=== PATIENT | female | born 1985 | race Caucasian/White ===

== ENCOUNTER 2020-11-23 17:39 | Emergency (ER) | payer OTHER ==
[~2020-11-23] VITALS: Ht 152.4 cm; Wt 74.8 kg
[~2020-11-23 17:39] MED LIST: IBUPROFEN 600600 M1 PO; IRON325 PO; METHOCARBAMOL500 M2 PO; NAPROSYN500 MG PO; NORCO 5-325 TA1 EACH PO; SENNA PO
[2020-11-23 19:44] LABS: URINE BILIRUBIN NEGATIVE (Negative); URINE BLOOD TRACE (Negative); URINE CLARITY CLEAR; URINE COLOR YELLOW; URINE GLUCOSE-RANDOM* NEGATIVE (Negative); URINE KETONES NEGATIVE (Negative); URINE NITRITE-REFLEX NEGATIVE (Negative); URINE PROTEIN (DIPSTICK) NEGATIVE (Negative); URINE UROBILINOGEN 0.2 E.U./dl (0.2-1.0)
[2020-11-23 19:45] LABS: URINE LEUKOCYTES-REFLEX 1+ (Negative)
[2020-11-23 20:05] LABS: SQUAMOUS 4-10 Moderate /LPF (0-3)
[2020-11-23 20:06] LABS: BACTERIA-REFLEX 1-9 Few /HPF (None Seen); MUCUS 0-3 Light strn/LPF (None Seen); URINE RBC 1-2 Rare /HPF (NONE SEEN); URINE WBC-REFLEX 0-5 Rare /HPF (0-5)
[2020-11-23 20:35] LABS: CALCIUM 9.2 mg/dL (8.5-10.1); CREATININE 0.7 mg/dL (0.6-1.0); POTASSIUM 4.5 mmol/L (3.5-5.1)
[2020-11-23] MEDS ORDERED: FLEXERIL PO (20:49)
[2020-11-24 07:47] VITALS: BP 147/75
== END 2020-11-23 21:40 | disposition home or self-care (01) ==
LOC: ER 17:39
PROVIDERS: Physician Assistant
DX: S61.012A Laceration without foreign body of left thumb without damage to nail, initial encounter (principal); S63.682A Other sprain of left thumb, initial encounter; S30.1XXA Contusion of abdominal wall, initial encounter; F41.9 Anxiety disorder, unspecified; Z79.1 Long term (current) use of non-steroidal anti-inflammatories (NSAID); Z79.899 Other long term (current) drug therapy; Z79.891 Long term (current) use of opiate analgesic; Z88.8 Allergy status to other drugs, medicaments and biological substances; Z91.09 Other allergy status, other than to drugs and biological substances; V89.2XXA Person injured in unspecified motor-vehicle accident, traffic, initial encounter; Y93.89 Activity, other specified; Y92.89 Other specified places as the place of occurrence of the external cause; Y99.8 Other external cause status

== ENCOUNTER 2020-11-27 11:09 | Emergency (ER) | payer OTHER ==
[~2020-11-27] VITALS: Ht 149.9 cm; Wt 74.8 kg
[~2020-11-27 11:09] MED LIST changes: +FLEXERIL PO
[2020-11-27 11:16] VITALS: BP 114/70
== END 2020-11-27 12:06 | disposition home or self-care (01) ==
LOC: ER 11:09
DX: S69.82XA Other specified injuries of left wrist, hand and finger(s), initial encounter (principal); X58.XXXA Exposure to other specified factors, initial encounter; Y93.89 Activity, other specified; Y92.89 Other specified places as the place of occurrence of the external cause; Y99.8 Other external cause status; Z88.8 Allergy status to other drugs, medicaments and biological substances